=== PATIENT | male | born 1945 | race Caucasian/White ===

== ENCOUNTER 2018-09-11 12:29 | Emergency (ER) | payer MEDICARE, OTHER ==
[~2018-09-11] VITALS: Ht 175.3 cm; Wt 85.4 kg
[2018-09-11 12:34] VITALS: BP 142/76
--- NOTE | 2018-09-11 13:01 | NUR ---
SPOKE TO DR HICKS REGARDING TRIAGE, PATIENT TO A LEVEL 4
== END 2018-09-11 13:33 | disposition home or self-care (01) ==
LOC: ER 12:31
DX: T78.40XA Allergy, unspecified, initial encounter (principal); Z91.013 Allergy to seafood; Z88.1 Allergy status to other antibiotic agents; X58.XXXA Exposure to other specified factors, initial encounter
CPT/HCPCS: 99281

== ENCOUNTER 2019-04-18 13:19 | Emergency (ER) | payer MEDICARE, OTHER ==
[~2019-04-18] VITALS: Ht 175.3 cm; Wt 81.8 kg
[2019-04-18 13:58] LABS: BASOPHILS % (AUTO) 0.7 % (0-1); EOSINOPHILS # (AUTO) 0.1 X10'3 (0-0.9); EOSINOPHILS % (AUTO) 1.9 % (0-6); HEMATOCRIT 40.5 % (42.0-52.0); HEMOGLOBIN 13.5 g/dl (14.0-17.9); LYMPHOCYTES # (AUTO) 0.9 X10'3 (1.1-4.8); LYMPHOCYTES % (AUTO) 14.2 % (21-51); MEAN CORPUSCULAR HEMOGLOBIN 32.1 PG (27.0-31.0); MEAN CORPUSCULAR HGB CONC 33.2 g/dL (33.0-36.5); MEAN CORPUSCULAR VOLUME 96.5 FL (78-98); MEAN PLATELET VOLUME 9.6 FL (7.4-10.4); MONOCYTES # (AUTO) 0.8 X10'3 (0-0.9); MONOCYTES % (AUTO) 12.9 % (2-12); NEUTROPHILS # (AUTO) 4.3 X10'3 (1.8-7.7); NEUTROPHILS % (AUTO) 70.3 % (42-75); PLATELET COUNT 219 X10'3 (140-440); RED CELL DISTRIBUTION WIDTH 14.4 % (11.5-14.5); WHITE BLOOD COUNT 6.1 X10'3 (4.5-11.0)
[2019-04-18 14:07] LABS: PARTIAL THROMBOPLASTIN TIME 29 SECONDS (22-32)
[2019-04-18 14:10] LABS: ALANINE AMINOTRANSFERASE 41 U/L (12-78); ALBUMIN 3.6 G/DL (3.4-5.0); ALBUMIN/GLOBULIN RATIO 1.1 (1.1-1.5); ALKALINE PHOSPHATASE 93 IU/L (46-116); ANION GAP 8 (8-16); ASPARTATE AMINO TRANSFERASE 20 U/L (10-37); BILIRUBIN,TOTAL 0.6 MG/DL (0.1-1.0); BLOOD UREA NITROGEN 16 MG/DL (7-18); BUN/CREATININE RATIO 16.5 (5.4-32.0); CALCIUM 8.7 MG/DL (8.5-10.1); CHLORIDE 100 MMOL/L (99-107); CREATININE 0.97 MG/DL (0.60-1.10); GLUCOSE 104 MG/DL (70-104); POTASSIUM 3.8 MMOL/L (3.5-5.1); SODIUM 133 MMOL/L (135-145); TOTAL CARBON DIOXIDE 25.1 MMOL/L (24-32); TOTAL PROTEIN 6.8 G/DL (6.4-8.2); eGFR 75 ML/MIN
[2019-04-18] MEDS ORDERED: iohexol 350MG/ML 100ml bottle IV ONE (16:26)
--- NOTE | 2019-04-18 16:51 | NUR ---
PT TO CT
[2019-04-18] MEDS ORDERED: furosemide 10 MG/1 ML 10ml inj IV ONE (18:00)
[2019-04-18] MEDS ORDERED: ZOLP10TA5 PO (18:46)
[2019-04-18] MEDS ORDERED: LEVO300T2 PO (18:46)
[2019-04-18] MEDS ORDERED: FURO80TA87 PO (18:48)
[2019-04-18] MEDS ORDERED: CLOP75TA15 PO (18:49)
[2019-04-18] MEDS ORDERED: LISI-640 PO (18:50)
[2019-04-18] MEDS ORDERED: ROSU10TA2 PO (18:52)
[2019-04-18] MEDS ORDERED: MAGN500C16 PO (18:53)
[2019-04-18] MEDS ORDERED: CHOL200012 (18:55)
[2019-04-18] MEDS ORDERED: CYAN500T63 PO (18:56)
[2019-04-18] MEDS ORDERED: FURO-150 PO (20:45)
[2019-04-18 21:04] VITALS: BP 126/78
== END 2019-04-18 21:34 | disposition home or self-care (01) ==
LOC: ER 13:19
DX: I50.9 Heart failure, unspecified (principal); R06.02 Shortness of breath; R06.00 Dyspnea, unspecified; Z88.1 Allergy status to other antibiotic agents; Z79.899 Other long term (current) drug therapy; Z85.46 Personal history of malignant neoplasm of prostate
CPT/HCPCS: 36415; 71045; 71275; 80053; 83880; 84484; 85025; 85610; 85730; 93005; 96374; 99284; J1940; Q9967

== ENCOUNTER 2019-07-04 18:23 | Inpatient (IN) | payer MEDICARE, OTHER ==
[~2019-07-04] VITALS: Ht 175.3 cm; Wt 84.0 kg
[~2019-07-04 18:23] MED LIST: CHOL200012; CLOP75TA15 PO; CYAN500T63 PO; FURO80TA87 PO; LEVO300T2 PO; LISI-640 PO; MAGN500C16 PO; ROSU10TA2 PO; ZOLP10TA5 PO
[2019-07-04 18:56] LABS: BASOPHILS % (AUTO) 0.8 % (0-1); EOSINOPHILS # (AUTO) 0.1 X10'3 (0-0.9); EOSINOPHILS % (AUTO) 1.9 % (0-6); HEMATOCRIT 43.5 % (42.0-52.0); HEMOGLOBIN 14.1 g/dl (14.0-17.9); LYMPHOCYTES # (AUTO) 0.8 X10'3 (1.1-4.8); LYMPHOCYTES % (AUTO) 13.4 % (21-51); MEAN CORPUSCULAR HEMOGLOBIN 31.2 PG (27.0-31.0); MEAN CORPUSCULAR HGB CONC 32.5 g/dL (33.0-36.5); MEAN CORPUSCULAR VOLUME 95.9 FL (78-98); MEAN PLATELET VOLUME 9.4 FL (7.4-10.4); MONOCYTES # (AUTO) 0.8 X10'3 (0-0.9); NEUTROPHILS % (AUTO) 69.9 % (42-75); PLATELET COUNT 210 X10'3 (140-440); RED BLOOD COUNT 4.53 X10'6 (4.70-6.10); RED CELL DISTRIBUTION WIDTH 16.5 % (11.5-14.5); WHITE BLOOD COUNT 5.7 X10'3 (4.5-11.0)
[2019-07-04 19:04] LABS: ALANINE AMINOTRANSFERASE 36 U/L (12-78); ALBUMIN 3.3 G/DL (3.4-5.0); ALBUMIN/GLOBULIN RATIO 0.9 (1.1-1.5); ALKALINE PHOSPHATASE 111 IU/L (46-116); ANION GAP 10 (8-16); ASPARTATE AMINO TRANSFERASE 22 U/L (10-37); BILIRUBIN,TOTAL 0.5 MG/DL (0.1-1.0); BLOOD UREA NITROGEN 27 MG/DL (7-18); BUN/CREATININE RATIO 24.3 (5.4-32.0); CALCIUM 8.7 MG/DL (8.5-10.1); CHLORIDE 106 MMOL/L (99-107); CREATININE 1.11 MG/DL (0.60-1.10); GLUCOSE 112 MG/DL (70-104); POTASSIUM 3.8 MMOL/L (3.5-5.1); SODIUM 142 MMOL/L (135-145); TOTAL CARBON DIOXIDE 26.5 MMOL/L (24-32); TOTAL PROTEIN 6.8 G/DL (6.4-8.2); eGFR 64 ML/MIN
[2019-07-04 19:07] LABS: TROPONIN I < 0.04 NG/ML (0.0-0.05)
[2019-07-04] MEDS ORDERED: LISI-600 PO (20:16)
[2019-07-04] MEDS ORDERED: furosemide 10 MG/1 ML 10ml inj IV ONE (20:30)
[2019-07-04] MEDS ORDERED: bumetanide 0.25mg/ml 4ml vial IV STA (21:46)
[2019-07-04] MEDS ORDERED: potassium Cl 20 mEq SR tablet PO STA (22:10)
[2019-07-04] MEDS ORDERED: potassium Cl 10 mEq/100mL bag IV ONE (22:10)
[2019-07-05] VITALS (7 sets, daily range): BP systolic 102–149; BP diastolic 67–96
[2019-07-05] MEDS ORDERED: CARV-50 PO (00:27)
[2019-07-05] MEDS ORDERED: acetaminophen 325mg tablet PO PRN (00:30)
[2019-07-05] MEDS ORDERED: mag hydrox/Alum hydrox/simeth 30ml oral suspension PO PRN (00:30)
[2019-07-05] MEDS ORDERED: ondansetron/PF 4mg/2ml inj IV PRN (00:30)
[2019-07-05] MEDS ORDERED: magnesium hydroxide 30ml (MOM) UD suspension PO PRN (00:30)
--- NOTE | 2019-07-05 00:30 | NUR ---
I have received report from ELIJAH Rivera in ER and had the opportunity to ask questions and assume patient care. Awaiting patient arrival to bed 3012A.
--- NOTE | 2019-07-05 01:20 | NUR ---
Patient arrived to floor at 0100 via gurney. Patient ambulated from gurney to bedside with moderate shortness of breath. Placed on telemetry 48 and is in NSR with 1st degree HB. Patient sating well on room air at 94%. Belongings, including glasses, partial upper and lower dentures, clothing articles, and cell phone placed at bedside. Patient alert and oriented x4. Will continue to monitor closely.
[2019-07-05 02:40] LABS: HEMOGLOBIN A1C 6.1 % (4.5-6.2)
--- NOTE | 2019-07-05 06:00 | NUR ---
Patient in room PCU 3012. I have received report from Bill NAVA and had the opportunity to ask questions and assume patient care.
--- NOTE | 2019-07-05 06:10 | NUR ---
Problems reprioritized. Patient report given, questions answered & plan of care reviewed with ELIJAH Gottlieb.
[2019-07-05] MEDS: carVEDilol 12.5mg tablet PO SCH ×2 (07:19→20:38)
[2019-07-05] MEDS: clopidogrel 75mg tablet PO SCH (07:20)
[2019-07-05] MEDS: atorvastatin 20mg tablet PO SCH (07:23)
[2019-07-05] MEDS: heparin, porcine 5000 units/ml vial SQ SCH ×2 (07:25→20:35)
[2019-07-05] MEDS ORDERED: bumetanide 0.25mg/ml 4ml vial IV SCH (08:00)
[2019-07-05] MEDS ORDERED: furosemide 40mg/4ml inj IV ONE (09:20)
[2019-07-05] MEDS: levoTHYROXINE 100mcg tablet PO SCH (09:38)
[2019-07-05] MEDS: lisinopril 20mg tablet PO SCH (12:11)
--- NOTE | 2019-07-05 12:51 | NUR ---
Patient in room PCU 3012. I have received report from ELIJAH Gottlieb and had the opportunity to ask questions and assume patient care.
--- NOTE | 2019-07-05 13:02 | NUR ---
Problems reprioritized. Patient report given, questions answered & plan of care reviewed with Luis NAVA.
--- NOTE | 2019-07-05 16:16 | NUR ---
Problems reprioritized. Patient report given, questions answered & plan of care reviewed with ELIJAH Armenta.
--- NOTE | 2019-07-05 16:16 | NUR ---
Patient in room PCU 3012. I have received report from ELIJAH Smith and had the opportunity to ask questions and assume patient care.
--- NOTE | 2019-07-05 18:00 | NUR ---
Patient in room PCU 3012. I have received report from NEISHA NAVA and had the opportunity to ask questions and assume patient care.
--- NOTE | 2019-07-05 18:00 | NUR ---
Problems reprioritized. Patient report given, questions answered & plan of care reviewed with ELIJAH Roman.
--- NOTE | 2019-07-05 19:19 | NUR ---
I had recieved verbal report from ER Sergio NAVA, and was told patient expressed desire to go AMA, was agitated, had requested to "go out and move truck and smoke", in addition to medical report given. Patient agitated on arrival to floor, wanted to "go outside and smoke"; patient had taken off nicotine patch priior to my arrival in room. [facility] RN Resource Nurse had recieved patient., as I was administering medication in another room at the time of patient arrival. [facility] indicated patient was ready to leave AMA unless he could go outside and move truck, smoke, see his son at truck to obtain boyce in truck. Discussed situation with Kay Denise RN, and patient twice to confirm best course of action. dr Del Real had already been notified by jeannette Villanueva, and patient agreed and signed appropriate documents leaving against medical advice. 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
[2019-07-05] MEDS: furosemide 40mg/4ml inj IV SCH (20:37)
[2019-07-06 02:00] VITALS: BP 133/88
[2019-07-06 05:50] LABS: BASOPHILS % (AUTO) 0.6 % (0-1); EOSINOPHILS # (AUTO) 0.1 X10'3 (0-0.9); EOSINOPHILS % (AUTO) 0.8 % (0-6); HEMATOCRIT 41.9 % (42.0-52.0); HEMOGLOBIN 13.9 g/dl (14.0-17.9); LYMPHOCYTES # (AUTO) 0.8 X10'3 (1.1-4.8); LYMPHOCYTES % (AUTO) 12.2 % (21-51); MEAN CORPUSCULAR HEMOGLOBIN 31.2 PG (27.0-31.0); MEAN CORPUSCULAR HGB CONC 33.3 g/dL (33.0-36.5); MEAN CORPUSCULAR VOLUME 93.7 FL (78-98); MEAN PLATELET VOLUME 9.7 FL (7.4-10.4); MONOCYTES # (AUTO) 1.1 X10'3 (0-0.9); MONOCYTES % (AUTO) 16.3 % (2-12); NEUTROPHILS # (AUTO) 4.5 X10'3 (1.8-7.7); NEUTROPHILS % (AUTO) 70.1 % (42-75); PLATELET COUNT 187 X10'3 (140-440); RED BLOOD COUNT 4.47 X10'6 (4.70-6.10); RED CELL DISTRIBUTION WIDTH 16.3 % (11.5-14.5); WHITE BLOOD COUNT 6.5 X10'3 (4.5-11.0)
[2019-07-06 05:57] LABS: ALANINE AMINOTRANSFERASE 30 U/L (12-78); ALBUMIN 3.1 G/DL (3.4-5.0); ALKALINE PHOSPHATASE 97 IU/L (46-116); ANION GAP 8 (8-16); ASPARTATE AMINO TRANSFERASE 23 U/L (10-37); BILIRUBIN,TOTAL 0.7 MG/DL (0.1-1.0); BLOOD UREA NITROGEN 27 MG/DL (7-18); BUN/CREATININE RATIO 23.5 (5.4-32.0); CALCIUM 8.2 MG/DL (8.5-10.1); CHLORIDE 105 MMOL/L (99-107); CHOL/HDL RATIO 1.8 (0.00-4.99); CHOLESTEROL 70 MG/DL (0-200); CREATININE 1.15 MG/DL (0.60-1.10); GLUCOSE 100 MG/DL (70-104); HDL CHOLESTEROL 40 MG/DL (35-60); LDL CHOLESTEROL 28 MG/DL (50-100); POTASSIUM 3.4 MMOL/L (3.5-5.1); SODIUM 142 MMOL/L (135-145); TOTAL CARBON DIOXIDE 28.6 MMOL/L (24-32); TOTAL PROTEIN 6.3 G/DL (6.4-8.2); TRIGLYCERIDES 56 MG/DL (20-135); eGFR 62 ML/MIN
[2019-07-06 06:00] VITALS: BP 130/76
--- NOTE | 2019-07-06 06:00 | NUR ---
Problems reprioritized. Patient report given, questions answered & plan of care reviewed with Bull.
--- NOTE | 2019-07-06 06:00 | NUR ---
Patient in room PCU 3012. I have received report from Jessie NAVA and had the opportunity to ask questions and assume patient care.
[2019-07-06] MEDS ORDERED: potassium Cl 20 mEq SR tablet PO STA (08:47)
--- NOTE | 2019-07-06 08:47 | NUR ---
PAGER ID: [phone] MESSAGE: RE: Kenyatta Pacheco, Room: [facility]. Pt's morning potassium is 3.4. No replacement orders are in. Do you want me to put replacement orders in? -Bull [facility] #[id number] Dr. Coker paged concerning Pt's morning potassium level and no replacement orders are in.
[2019-07-06] MEDS: levoTHYROXINE 100mcg tablet PO SCH (08:52)
[2019-07-06] MEDS: atorvastatin 20mg tablet PO SCH (08:52)
[2019-07-06] MEDS: clopidogrel 75mg tablet PO SCH (08:52)
[2019-07-06] MEDS: heparin, porcine 5000 units/ml vial SQ SCH (08:52)
[2019-07-06] MEDS: carVEDilol 12.5mg tablet PO SCH (08:52)
[2019-07-06] MEDS: furosemide 40mg/4ml inj IV SCH (08:52)
[2019-07-06 11:00] VITALS: BP_SYST 125
[2019-07-06] MEDS: lisinopril 20mg tablet PO SCH (11:00)
--- NOTE | 2019-07-06 11:45 | NUR ---
Pt DC'd home with . PIV removed, canula intact. Tele-box removed and returned to tele-tech. Pt stabe and vitals WNL. DC paperwork gone over with Pt and . Allowed both Pt and to ask questions concerning DC and then answer them. No new medications prescribed. Follow up appt made with Dr. Miranda office for 07/11/19 at 1400. Pt will make follow up appt with PCP, Dr. Tatum. Pt's belongings gathered and sent with Pt. Pt wheeled down to lobby in wheelchair via auxillary personal. Pt left with in private vehicle.
== END 2019-07-06 11:59 | disposition home or self-care (01) | DRG 293 ==
LOC: ER 18:23 → ED HOLD 07-05 00:30 → PCU 3S 07-05 01:00
PROVIDERS: ADMIT Internal Medicine; ATTEND Family Medicine
DX: I11.0 Hypertensive heart disease with heart failure (principal); I50.23 Acute on chronic systolic (congestive) heart failure; E78.5 Hyperlipidemia, unspecified; I44.0 Atrioventricular block, first degree; E86.0 Dehydration; Z85.46 Personal history of malignant neoplasm of prostate; Z79.899 Other long term (current) drug therapy; Z88.1 Allergy status to other antibiotic agents
CPT/HCPCS: 36415; 71045; 80053; 80061; 83036; 83880; 84484; 85025; 87081; 93005; 93306; 96374; 96375; 99285; G0378; J1644; J1940; J3480; J3490

== ENCOUNTER 2019-09-27 08:30 | Day surgery (SDC) | payer MEDICARE, OTHER ==
[~2019-09-27] VITALS: Ht 175.3 cm; Wt 77.3 kg
[~2019-09-27 08:30] MED LIST changes: +CARV-50 PO; +LISI-600 PO; -LISI-640 PO; -ZOLP10TA5 PO
[2019-09-27 08:45] VITALS: BP 123/61
[2019-09-27] MEDS ORDERED: MIDAZolam 5mg/5ml vial ONE (08:51)
[2019-09-27] MEDS ORDERED: fentaNYL/PF 50MCG/1 ML 2ML syringe ONE (08:51)
[2019-09-27] MEDS ORDERED: CARV12.5 PO (08:58)
[2019-09-27] MEDS ORDERED: potassium PO (09:00)
[2019-09-27] MEDS ORDERED: digoxin PO (09:07)
[2019-09-27] MEDS ORDERED: CETI-90 PO (09:08)
[2019-09-27] MEDS ORDERED: MULT-955 PO (09:08)
[2019-09-27 10:00] VITALS: BP 134/62
[2019-09-27 10:10] VITALS: BP 132/61
== END 2019-09-27 10:50 | disposition home or self-care (01) ==
LOC: GI LAB 08:30
PROVIDERS: ATTEND Internal Medicine Gastroenterology
DX: K92.1 Melena (principal); K57.30 Diverticulosis of large intestine without perforation or abscess without bleeding; K55.21 Angiodysplasia of colon with hemorrhage
CPT/HCPCS: 45334; J2250; J3010; J7040; 45346; A4620

== ENCOUNTER 2023-03-31 13:42 | Emergency (ER) | payer MEDICARE, OTHER ==
[~2023-03-31] VITALS: Ht 175.3 cm; Wt 88.2 kg
[~2023-03-31 13:42] MED LIST changes: +CARV12.5 PO; +CETI-90 PO; -CYAN500T63 PO; +CYAN500T71 PO; -LISI-600 PO; +LISI20TA28 PO; -MAGN500C16 PO; +MAGN500C4 PO; +MULT-955 PO; +digoxin PO; +potassium PO
[2023-03-31 13:49] VITALS: BP 115/62; PULSE 58; RESP 16; TEMP 98.1; O2SAT 97
== END 2023-03-31 18:34 | disposition left against medical advice (07) ==
LOC: ER 13:42
DX: R60.0 Localized edema (principal); Z53.21 Procedure and treatment not carried out due to patient leaving prior to being seen by health care provider
CPT/HCPCS: 99281